=== PATIENT | male | born 1975 | race Caucasian/White ===

== ENCOUNTER 2022-10-23 19:43 | Emergency (ER) | payer OTHER ==
[~2022-10-23 19:43] MED LIST: ASPI-1450 PO; ATOR20TA PO; ATOR20TA65 PO; BUME1TAB34 PO; BUME1TAB6 PO; DOCU-385 PO; FOLI-130 PO; LANS-78 PO; LANS30CA55 PO; LEVE250T PO; LEVE250T4 PO; PYRI-13 PO; PYRI-9 PO; SENN-376 PO
[2022-10-23] MEDS ORDERED: LABETALOL HCL 5 MG/ML 20 ML VIAL IVP PRN (19:45)
[2022-10-23 20:30] VITALS: PULSE 133; RESP 16; O2SAT 100
[2022-10-23] MEDS ORDERED: NiCARDipine HCL 25 MG in SODIUM CHLORIDE 0.9% 240 ML IV PRN ×2 (20:30→21:30)
[2022-10-23] MEDS ORDERED: LevETIRAcetam 1,000 MG in DEXTROSE 5%-WATER 100 ML IV ONE (20:30)
[2022-10-23] MEDS ORDERED: MIDAZOLAM HCL 100 MG in SODIUM CHLORIDE 0.9% 180 ML IV PRN (20:45)
[2022-10-23] MEDS ORDERED: PROPOFOL 1000 MG/ISO-OSM 100 ML IV PRN (20:45)
[2022-10-23] MEDS ORDERED: HUM PROTHROMBIN CPLX(PCC)4FACT 1,000 UNIT VIAL IVP ONE (20:45)
[2022-10-23] MEDS ORDERED: ONDANSETRON HCL 4 MG/2 ML VIAL IVP PRN (21:15)
[2022-10-23] MEDS ORDERED: FAMOTIDINE 20 MG/2 ML VIAL IVP SCH (21:15)
[2022-10-23] MEDS ORDERED: LABETALOL HCL 5 MG/ML 20 ML VIAL IVP ONE (21:15)
[2022-10-23] MEDS ORDERED: ACETAMINOPHEN 325 MG TABLET PO PRN (21:15)
[2022-10-23] MEDS ORDERED: MANNITOL 25%-12.5 GM/50 ML VIAL IVP ONE (21:15)
[2022-10-23 21:33] LABS: BASOPHILS % (AUTO) 0.2 % (0.0-2.0); EOSINOPHILS % (AUTO) 0.1 % (1.0-6.0); HEMATOCRIT 32.3 % (41-53); HEMOGLOBIN 10.3 g/dL (13.5-17.5); LYMPHOCYTES # (AUTO) 0.9 K/uL (1.0-4.8); LYMPHOCYTES % (AUTO) 7.5 % (22.0-44.0); MEAN CORPUSCULAR HEMOGLOBIN 30.8 pg (26.0-34.0); MEAN CORPUSCULAR HGB CONC 31.9 G/dL (31.0-37.0); MEAN CORPUSCULAR VOLUME 97 fL (80-100); MONOCYTES # (AUTO) 1.2 K/uL (0.1-1.0); MONOCYTES % (AUTO) 9.8 % (2.0-9.0); NEUTROPHILS # (AUTO) 10.4 K/uL (1.8-7.7); NEUTROPHILS % (AUTO) 82.4 % (40.0-70.0); PLATELET COUNT (AUTO) 264 K/uL (150-450); RED BLOOD CELL COUNT(AUTO) 3.35 MIL/uL (4.50-5.90); RED CELL DISTRIBUTION WIDTH 14.3 % (11.5-14.5); WHITE BLOOD COUNT (AUTO) 12.6 K/uL (4.5-11.0)
[2022-10-23 21:42] LABS: CALCIUM, TOTAL 10.3 mg/dL (8.8-10.5); CREATININE 11.97 mg/dL (0.60-1.30); POTASSIUM 4.5 mmol/L (3.5-5.1)
[2022-10-23] MEDS ORDERED: MIDAZOLAM HCL 5 MG/ML VIAL IVP ONE (21:45)
[2022-10-23] MEDS ORDERED: LORazepam 2 MG/ML VIAL IVP ONE ×2 (21:45→23:30)
[2022-10-23 21:46] LABS: INR 1.7 (0.9-1.1); PROTHROMBIN TIME 17.1 SEC (9.4-11.6)
[2022-10-23 21:47] LABS: ABG CARBOXYHEMOGLOBIN 0.3 % (0.0-1.5); ABG HCO3 27.1 mmol/L (22.0-26.0); ABG METHEMOGLOBIN 0.4 % (0.0-1.5); ABG OXYGEN CONTENT 16.7 mL/dL (15.0-23.0); ABG OXYGEN SATURATION 99.5 % (95.0-98.0); ABG OXYHEMOGLOBIN 98.8 % (94.0-100.0); ABG PCO2 39 mmHg (35-45); ABG PH 7.454 (7.35-7.450); ABG TOTAL HEMOGLOBIN 11.3 G/dL (12.0-18.0); ALLEN TEST, BLOOD GAS Positive; PO2, ARTERIAL BG 378.1 mmHg (88.0-96.0); SITE, BLOOD GAS LFT RADIAL; SOURCE, BLOOD GAS ARTERIAL; TEMPERATURE, FAHRENHEIT, BG 98.6 FAHREN (96.0-98.6)
[2022-10-23 21:48] LABS: ALBUMIN 3.2 g/dL (3.4-5.0); BILIRUBIN,TOTAL 0.5 mg/dL (0.1-1.0); TOTAL PROTEIN, SERUM 9.1 g/dL (6.4-8.2)
[2022-10-23 21:48] LABS: ABG A-A DIFF O2 295.6 mmHg (10-20.0); O2 DEVICE,BLOOD GAS VENTILATOR (ROOM AIR); PEEP,BG 5 cm H2O; VT, ABG 500 ml
[2022-10-23 21:50] LABS: TROPONIN I-HIGH SENSITIVITY 66 ng/L (<76)
[2022-10-23] MEDS ORDERED: PHENYTOIN SODIUM 1,000 MG in SODIUM CHLORIDE 0.9% 150 ML IV ONE (22:00)
[2022-10-23 22:02] LABS: ALCOHOL, URINE DRUG SCREEN NEGATIVE (NEGATIVE); AMPHET/METH SCREEN,URINE NEGATIVE (NEGATIVE); BARBITURATE SCREEN, URINE NEGATIVE (NEGATIVE); BENZODIAZEPINES SCREEN,URINE NEGATIVE (NEGATIVE); CANNABINOID SCREEN,URINE NEGATIVE (NEGATIVE); COCAINE SCREEN,URINE NEGATIVE (NEGATIVE); METHADONE SCREEN, URINE NEGATIVE (NEGATIVE); OPIATE SCREEN,URINE NEGATIVE (NEGATIVE); PHENCYCLIDINE SCREEN,URINE NEGATIVE (NEGATIVE)
[2022-10-23] MEDS ORDERED: SODIUM CHLORIDE 0.9% 500 ML IV ONE (22:37)
[2022-10-23 23:05] VITALS: PULSE 106; RESP 22; O2SAT 98
[2022-10-23] MEDS ORDERED: PHYTONADIONE 10 MG/1 ML AMP IM SCH (23:15)
[2022-10-24] MEDS ORDERED: SODIUM CHLORIDE 3% 500 ML IV SCH
[2022-10-24] MEDS ORDERED: LABETALOL HCL 200 MG in DEXTROSE 5%-WATER 160 ML IV PRN ×2
[2022-10-24 00:04] LABS: COVID AG,FIA SOURCE NASAL SWAB
[2022-10-24 00:11] LABS: SARS-COV2 (COVID) ANTIGEN,FIA Negative (Negative)
[2022-10-24 01:00] VITALS: TEMP 100.6
[2022-10-24 01:50] VITALS: BP 135/73; PULSE 116; RESP 16
[2022-10-24] MEDS ORDERED: LevETIRAcetam 250 MG in DEXTROSE 5%-WATER 100 ML IV SCH (08:00)
[2022-10-24] MEDS ORDERED: DOCUSATE SODIUM 100 MG CAPSULE PO SCH (09:00)
[2022-10-26] MEDS ORDERED: ROCURONIUM BROMIDE 10 MG/ML 5 ML VIAL ONE (16:53)
[2022-10-26] MEDS ORDERED: ETOMIDATE 2 MG/ML 10 ML VIAL ONE (16:53)
== END 2022-10-24 02:33 | disposition short-term general hospital (02) ==
LOC: EMS 19:43
DX: I62.9 Nontraumatic intracranial hemorrhage, unspecified (principal); R56.9 Unspecified convulsions; J96.90 Respiratory failure, unspecified, unspecified whether with hypoxia or hypercapnia; Z20.822 Contact with and (suspected) exposure to COVID-19
CPT/HCPCS: 99291; 94002; 86870; 96365; 86927; 96366; 96375 ×2; 70450; 71045; 87426; 87481; 80053; 84484; 85025; 85610; 85730; 86850; 86900; 86901; 36415; 82805; 36600; 82948; 93005; 96376; 96368; 96372; 80307; J0712; P9017; J3490 ×4; J2060; J1165; J2704 ×2; Q9967; J7060 ×2; J2150; J7050 ×2; J7040; J3430; J7030; J2250 ×2